=== PATIENT | female | born 1965 | race Caucasian/White ===

== ENCOUNTER 2017-05-25 11:30 | Inpatient (IN) | payer OTHER ==
[~2017-05-25] VITALS: Ht 157.5 cm; Wt 91.8 kg
[~2017-05-25 11:30] MED LIST: CHOL100011 PO; FERR15DR9 PO; LEVO75TA5 PO; MULT-194 PO; NEBI5TAB2 PO
[2017-05-25] MEDS ORDERED: LORazepam 2 MG/ML, 1ML ONE (11:44)
[2017-05-25] MEDS ORDERED: NALOXONE 1 MG/ML, 2ML ONE (11:45)
[2017-05-25] MEDS ORDERED: SODIUM CHLORIDE 0.9% 1,000ML IVBOLUS ONE (12:00)
[2017-05-25] MEDS ORDERED: SODIUM CHLORIDE FLUSH 10ML SYR IVF ONE (12:00)
[2017-05-25] MEDS ORDERED: LORazepam 2 MG/ML, 1ML IVPush ONE (12:00)
[2017-05-25] MEDS ORDERED: NALOXONE 1 MG/ML, 2ML IVPush ONE (12:00)
[2017-05-25] MEDS ORDERED: LEVE500V6 PO (12:08)
[2017-05-25 12:22] LABS: MEAN CORPUSCULAR HEMOGLOBIN 30.4 pg (27.0-34.8); MEAN CORPUSCULAR VOLUME 89.4 fL (80-100); MEAN PLATELET VOLUME 8.6 fL (7.4-10.4); PLATELET COUNT 382 x10^3/uL (130-400); RED BLOOD COUNT 5.46 x10^6/uL (3.82-5.3); RED CELL DISTRIBUTION WIDTH 12.6 % (9.6-15.2)
[2017-05-25 12:31] LABS: ALBUMIN 4.4 g/dL (3.4-5.0); ANION GAP 23 mmol/L (5-15); CALCIUM 8.2 mg/dL (8.5-10.1); CHLORIDE 104 mmol/L (98-107)
[2017-05-25 12:37] LABS: ALKALINE PHOSPHATASE 79 U/L (45-117); BILIRUBIN,TOTAL 0.6 mg/dL (0.2-1.0); CREATINE KINASE, TOTAL 451 U/L (26-192); CREATININE 1.42 mg/dL (0.55-1.02); TOTAL PROTEIN 8.4 g/dL (6.4-8.2); TROPONIN I < 0.015 ng/mL (0.000-0.045)
[2017-05-25 12:38] LABS: ALANINE AMINOTRANSFERASE 39 U/L (12-78)
[2017-05-25 12:43] LABS: BASOPHILS # (AUTO) 0.05 x10^3/uL (0-0.1); BASOPHILS % (AUTO) 0 % (0-1); EOSINOPHILS # (AUTO) 0.03 x10^3/uL (0-0.4); EOSINOPHILS % (AUTO) 0 % (1-7); LYMPHOCYTES # (AUTO) 2.54 x10^3/uL (1-3.4); LYMPHOCYTES % (AUTO) 11 % (22-44); MD SCAN; MONOCYTES # (AUTO) 0.51 x10^3/uL (0.2-0.8); MONOCYTES % (AUTO) 2 % (2-9); NEUTROPHILS # (AUTO) 19.38 x10^3/uL (1.8-6.8); NEUTROPHILS % (AUTO) 86 % (42-75)
[2017-05-25] MEDS ORDERED: SODIUM CHLORIDE 0.9%, 500ML IVBOLUS ONE ×2 (13:00→13:30)
[2017-05-25 13:39] LABS: MICROSCOPIC INDICATED
[2017-05-25 13:48] LABS: CULTURE INDICATED? YES
[2017-05-25] MEDS ORDERED: BISACODYL 10 MG SUPP PR PRN (14:00)
[2017-05-25] MEDS ORDERED: ONDANSETRON ODT 4 MG PO PRN (14:00)
[2017-05-25] MEDS ORDERED: LABETALOL 5MG/ML, 20ML IVPush PRN (14:00)
[2017-05-25] MEDS ORDERED: ONDANSETRON 2MG/ML, 2ML IVPush PRN (14:00)
[2017-05-25] MEDS ORDERED: DOCUSATE 100 MG CAPSULE PO PRN (14:00)
[2017-05-25] MEDS: LEVETIRACETAM 1,000 MG in SODIUM CHLORIDE 0.9% 100 ML IV SCH (14:19)
[2017-05-25] MEDS: SODIUM CHLORIDE 0.9% 1,000 ML IV SCH ×2 (14:23→23:13)
[2017-05-25 14:55] LABS: FREE T4 (FREE THYROXINE) 0.8 ng/dL (0.76-1.46); THYROID STIMULATING HORMONE 8.54 mIU/L (0.358-3.740)
[2017-05-25 14:58] LABS: HCT (SEDRATE) 42.1 % (34.6-47.8)
[2017-05-25] MEDS ORDERED: ACETAMINOPHEN 325 MG TABLET ONE (15:48)
[2017-05-25] MEDS ORDERED: HEPARIN 5,000 UNITS/ML, 1ML ONE (15:49)
[2017-05-25] MEDS: HEPARIN 5,000 UNITS/ML, 1ML SQ SCH ×2 (15:51→22:00)
[2017-05-25] MEDS: ACETAMINOPHEN 325 MG TABLET PO PRN (15:51)
[2017-05-25 17:32] VITALS: BP 145/87
[2017-05-25 18:04] VITALS: BP 145/87
[2017-05-25 20:00] VITALS: BP 133/84
[2017-05-26 02:00] VITALS: BP 122/75
[2017-05-26] MEDS: LEVETIRACETAM 1,000 MG in SODIUM CHLORIDE 0.9% 100 ML IV SCH ×2 (02:04→13:50)
[2017-05-26] MEDS: HEPARIN 5,000 UNITS/ML, 1ML SQ SCH ×2 (05:32→13:50)
[2017-05-26 05:42] LABS: BASOPHILS # (AUTO) 0.02 x10^3/uL (0-0.1); BASOPHILS % (AUTO) 0 % (0-1); EOSINOPHILS # (AUTO) 0.04 x10^3/uL (0-0.4); EOSINOPHILS % (AUTO) 0 % (1-7); LYMPHOCYTES # (AUTO) 1.48 x10^3/uL (1-3.4); LYMPHOCYTES % (AUTO) 16 % (22-44); MD NO; MEAN CORPUSCULAR HEMOGLOBIN 30.1 pg (27.0-34.8); MEAN CORPUSCULAR HGB CONC 34.5 g/dL (32.4-35.8); MEAN CORPUSCULAR VOLUME 87.2 fL (80-100); MEAN PLATELET VOLUME 8.1 fL (7.4-10.4); MONOCYTES # (AUTO) 0.62 x10^3/uL (0.2-0.8); MONOCYTES % (AUTO) 7 % (2-9); NEUTROPHILS # (AUTO) 7.28 x10^3/uL (1.8-6.8); NEUTROPHILS % (AUTO) 77 % (42-75); PLATELET COUNT 243 x10^3/uL (130-400); RED BLOOD COUNT 4.58 x10^6/uL (3.82-5.3); RED CELL DISTRIBUTION WIDTH 12.5 % (9.6-15.2)
[2017-05-26 05:50] LABS: CHLORIDE 117 mmol/L (98-107)
[2017-05-26 05:56] LABS: ANION GAP 8 mmol/L (5-15); CALCIUM 7.4 mg/dL (8.5-10.1); CREATININE 1.04 mg/dL (0.55-1.02)
[2017-05-26] MEDS: SODIUM CHLORIDE 0.9% 1,000 ML IV SCH ×3 (06:22→21:02)
[2017-05-26] MEDS: ACETAMINOPHEN 325 MG TABLET PO PRN (06:25)
[2017-05-26 07:35] VITALS: BP 134/79
[2017-05-26] MEDS: LEVOTHYROXINE 75 MCG TABLET PO SCH (07:43)
[2017-05-26] MEDS: MULTIVITAMIN 1 TABLET PO SCH (07:43)
[2017-05-26] MEDS: FAMOTIDINE 20 MG TABLET PO SCH (07:43)
[2017-05-26] MEDS: FERROUS SULFATE 325 MG TABLET PO SCH (07:43)
[2017-05-26] MEDS ORDERED: IBUPROFEN 200 MG TABLET PO PRN (10:00)
[2017-05-26 14:30] VITALS: BP 124/77
[2017-05-26 20:00] VITALS: BP 155/95
[2017-05-27] MEDS: HEPARIN 5,000 UNITS/ML, 1ML SQ SCH ×2 (00:34→06:12)
[2017-05-27 02:00] VITALS: BP 149/91
[2017-05-27] MEDS: LEVETIRACETAM 1,000 MG in SODIUM CHLORIDE 0.9% 100 ML IV SCH (02:06)
[2017-05-27 05:51] LABS: BASOPHILS # (AUTO) 0.03 x10^3/uL (0-0.1); BASOPHILS % (AUTO) 0 % (0-1); EOSINOPHILS # (AUTO) 0.11 x10^3/uL (0-0.4); EOSINOPHILS % (AUTO) 1 % (1-7); LYMPHOCYTES # (AUTO) 1.76 x10^3/uL (1-3.4); LYMPHOCYTES % (AUTO) 22 % (22-44); MD NO; MEAN CORPUSCULAR HEMOGLOBIN 30.2 pg (27.0-34.8); MEAN CORPUSCULAR HGB CONC 34.2 g/dL (32.4-35.8); MEAN CORPUSCULAR VOLUME 88.3 fL (80-100); MEAN PLATELET VOLUME 8.3 fL (7.4-10.4); MONOCYTES # (AUTO) 0.46 x10^3/uL (0.2-0.8); MONOCYTES % (AUTO) 6 % (2-9); NEUTROPHILS # (AUTO) 5.54 x10^3/uL (1.8-6.8); NEUTROPHILS % (AUTO) 70 % (42-75); PLATELET COUNT 211 x10^3/uL (130-400); RED BLOOD COUNT 4.37 x10^6/uL (3.82-5.3); RED CELL DISTRIBUTION WIDTH 12.6 % (9.6-15.2)
[2017-05-27] MEDS: SODIUM CHLORIDE 0.9% 1,000 ML IV SCH (05:59)
[2017-05-27 06:00] LABS: CHLORIDE 116 mmol/L (98-107)
[2017-05-27 06:09] LABS: ANION GAP 8 mmol/L (5-15); CALCIUM 8.2 mg/dL (8.5-10.1); CREATININE 0.88 mg/dL (0.55-1.02)
[2017-05-27 07:36] VITALS: BP 151/81
[2017-05-27] MEDS: FERROUS SULFATE 325 MG TABLET PO SCH (09:35)
[2017-05-27] MEDS: FAMOTIDINE 20 MG TABLET PO SCH (09:35)
[2017-05-27] MEDS: MULTIVITAMIN 1 TABLET PO SCH (09:36)
[2017-05-27] MEDS: LEVOTHYROXINE 75 MCG TABLET PO SCH (09:36)
[2017-05-27] MEDS ORDERED: LEVE10007 PO (09:50)
== END 2017-05-27 12:03 | disposition home or self-care (01) | DRG 101 ==
LOC: ED 12:47 → EDIP 12:48 → ED 12:58 → 4EST 17:01 → DCLOUNGE 05-27 11:55
PROVIDERS: ADMIT Internal Medicine; ATTEND Internal Medicine
PROC: 0T9B70Z Drainage of Bladder with Drainage Device, Via Natural or Artificial Opening (ICD-10-PCS; principal; 2017-05-25)
DX: G40.409 Other generalized epilepsy and epileptic syndromes, not intractable, without status epilepticus (principal); N17.9 Acute kidney failure, unspecified; E87.2 Acidosis; E87.1 Hypo-osmolality and hyponatremia; F05 Delirium due to known physiological condition; D72.828 Other elevated white blood cell count; E03.9 Hypothyroidism, unspecified; E86.0 Dehydration; E87.6 Hypokalemia; I10 Essential (primary) hypertension; V89.2XXA Person injured in unspecified motor-vehicle accident, traffic, initial encounter; Y92.410 Unspecified street and highway as the place of occurrence of the external cause; Z90.710 Acquired absence of both cervix and uterus
CPT/HCPCS: 36415; 70450; 71045; 80048; 80053; 80177; 81001; 82550; 83605; 83735; 84100; 84145; 84439; 84443; 84484; 85025; 85651; 87040; 87086; 93005; 96361; 96374; J1644; J1953; J2310; J7030; J7040